=== PATIENT | female | born 2000 | race African-American/Black ===

== ENCOUNTER 2019-05-23 11:41 | Emergency (ER) | payer MEDICAID, OTHER ==
[~2019-05-23] VITALS: Ht 167.6 cm; Wt 64.0 kg
[2019-05-23] MEDS ORDERED: ONDANSETRON 4MG ODT PO ONE (12:15)
[2019-05-23] MEDS ORDERED: KETOROLAC 60MG/2ML VIAL IM ONE (12:15)
[2019-05-23] MEDS ORDERED: HYDROCODONE/ACETAMINOPHEN 5/325MG TABLET PO ONE (12:15)
[2019-05-23 13:40] VITALS: BP 111/65
== END 2019-05-23 13:44 | disposition home or self-care (01) ==
LOC: ER 11:41
DX: S69.92XA Unspecified injury of left wrist, hand and finger(s), initial encounter (principal); S69.91XA Unspecified injury of right wrist, hand and finger(s), initial encounter; W23.0XXA Caught, crushed, jammed, or pinched between moving objects, initial encounter; Y93.89 Activity, other specified; Y92.89 Other specified places as the place of occurrence of the external cause; Y99.8 Other external cause status
CPT/HCPCS: 29105; 73060; 73070; 73090; 99283; Q0162; J1885